=== PATIENT | female | born 1955 | race Caucasian/White ===

== ENCOUNTER 2017-01-02 11:57 | Emergency (ER) | payer OTHER ==
[~2017-01-02] VITALS: Ht 165.1 cm; Wt 80.0 kg
[2017-01-02] MEDS ORDERED: AMBIEN5 MG PO (12:04)
[2017-01-02] MEDS ORDERED: TRAMADOL HCL50 MG PO (12:04)
[2017-01-02] MEDS ORDERED: ULTRAM50 M1 PO (12:51)
[2017-01-02 13:12] VITALS: BP 129/59
[2017-01-02] MEDS ORDERED: PERCOCET 5/325M1 TAB PO (13:26)
== END 2017-01-02 13:30 | disposition home or self-care (01) | DRG 563 ==
LOC: ED 11:57
DX: S42.032A Displaced fracture of lateral end of left clavicle, initial encounter for closed fracture (principal); M81.0 Age-related osteoporosis without current pathological fracture; S43.402A Unspecified sprain of left shoulder joint, initial encounter; W55.19XA Other contact with horse, initial encounter; Y93.52 Activity, horseback riding; Y92.39 Other specified sports and athletic area as the place of occurrence of the external cause